=== PATIENT | male | born 1960 | race Caucasian/White ===

== ENCOUNTER 2023-07-11 05:09 | Inpatient (IN) | payer OTHER, MEDICAID ==
[~2023-07-11] VITALS: Ht 188 cm; Wt 96.6 kg
[2023-07-11 06:32] LABS: BASOPHILS % (AUTO) 0.6 % (0.0-2.0); EOSINOPHILS % (AUTO) 2.8 % (1.0-6.0); HEMATOCRIT 34.5 % (41-53); HEMOGLOBIN 11.6 g/dL (13.5-17.5); LYMPHOCYTES # (AUTO) 1.5 K/uL (1.0-4.8); MEAN CORPUSCULAR HEMOGLOBIN 33.9 pg (26.0-34.0); MEAN CORPUSCULAR HGB CONC 33.6 G/dL (31.0-37.0); MEAN CORPUSCULAR VOLUME 101 fL (80-100); MONOCYTES # (AUTO) 0.7 K/uL (0.1-1.0); MONOCYTES % (AUTO) 10.8 % (2.0-9.0); NEUTROPHILS # (AUTO) 3.7 K/uL (1.8-7.7); NEUTROPHILS % (AUTO) 60.8 % (40.0-70.0); PLATELET COUNT (AUTO) 189 K/uL (150-450); RED BLOOD CELL COUNT(AUTO) 3.42 MIL/uL (4.50-5.90); RED CELL DISTRIBUTION WIDTH 15.5 % (11.5-14.5); WHITE BLOOD COUNT (AUTO) 6.1 K/uL (4.5-11.0)
[2023-07-11 06:45] LABS: ANION GAP 5 mmol/L (8-16); CALCIUM, TOTAL 8.8 mg/dL (8.8-10.5); CARBON DIOXIDE 28 mmol/L (22-29); CHLORIDE 106 mmol/L (98-107); CREATININE 1.03 mg/dL (0.60-1.30); GLOMERULAR FILTR. RATE CALC > 60 mL/min (>60); GLUCOSE,RANDOM 101 mg/dL (70-110); POTASSIUM 4.4 mmol/L (3.5-5.1); SODIUM SERUM 139 mmol/L (136-145); UREA NITROGEN, BLOOD 18 mg/dL (7-18)
[2023-07-11 06:51] LABS: ALANINE AMINOTRANSFERASE 16 U/L (12-78); ALBUMIN 3.3 g/dL (3.4-5.0); ALKALINE PHOSPHATASE 92 U/L (46-116); ASPARTATE AMINOTRANSFERASE 24 U/L (15-37); BILIRUBIN,TOTAL 0.2 mg/dL (0.1-1.0); TOTAL PROTEIN, SERUM 6.5 g/dL (6.4-8.2)
[2023-07-11 06:55] LABS: COVID AG,FIA SOURCE NASAL SWAB
[2023-07-11 07:07] LABS: ALCOHOL, BLOOD (SERUM) < 3 mg/dL (0-10)
[2023-07-11 07:13] LABS: RBC MORPHOLOGY COMMENT ABNORMAL RBC MORPH
[2023-07-11 07:17] LABS: SARS-COV2 (COVID) ANTIGEN,FIA Negative (Negative)
[2023-07-11 10:41] LABS: PH,URINE DRUG SCREEN 5.5 (5.0-8.0)
[2023-07-11 10:48] LABS: ALCOHOL, URINE DRUG SCREEN NEGATIVE (NEGATIVE); AMPHET/METH SCREEN,URINE NEGATIVE (NEGATIVE); BARBITURATE SCREEN, URINE NEGATIVE (NEGATIVE); BENZODIAZEPINES SCREEN,URINE POSITIVE (NEGATIVE); CANNABINOID SCREEN,URINE NEGATIVE (NEGATIVE); COCAINE SCREEN,URINE NEGATIVE (NEGATIVE); METHADONE SCREEN, URINE NEGATIVE (NEGATIVE); OPIATE SCREEN,URINE NEGATIVE (NEGATIVE); PHENCYCLIDINE SCREEN,URINE NEGATIVE (NEGATIVE)
[2023-07-11] MEDS ORDERED: ZOLPIDEM TARTRATE 10 MG TABLET PO PRN (11:45)
[2023-07-11] MEDS ORDERED: HALOPERIDOL 5 MG TABLET PO PRN (11:45)
[2023-07-11 15:30] VITALS: BP 144/92; PULSE 57; RESP 20; TEMP 97.8; O2SAT 97
[2023-07-11] MEDS ORDERED: PNEUMOCOCCAL VACCINE POLYVALENT 0.5 ML SYRINGE [PPSV23] IM. ONE (15:45)
[2023-07-11] MEDS: TAMSULOSIN HCL 0.4 MG CAPSULE PO SCH (17:28)
[2023-07-11] MEDS: APIXABAN 5 MG TABLET PO SCH (17:28)
[2023-07-11] MEDS: ATENOLOL 50 MG TABLET PO SCH (17:28)
[2023-07-11] MEDS: LORazepam 2 MG TABLET PO PRN (17:34)
[2023-07-11 21:02] VITALS: RESP 18
[2023-07-12] VITALS (8 sets, daily range): BP systolic 90–122; BP diastolic 60–78; PULSE 54–66; RESP 18–19; TEMP 97.7–99.1; O2SAT 96–98
[2023-07-12] MEDS: LORazepam 2 MG TABLET PO PRN (07:46)
[2023-07-12] MEDS: APIXABAN 5 MG TABLET PO SCH ×2 (08:12→16:06)
[2023-07-12] MEDS: ATENOLOL 50 MG TABLET PO SCH ×2 (08:12→16:05)
[2023-07-12] MEDS: TAMSULOSIN HCL 0.4 MG CAPSULE PO SCH ×2 (08:12→16:05)
[2023-07-12] MEDS ORDERED: BUSP15 PO (10:56)
[2023-07-12] MEDS ORDERED: QUET50TA24 PO (10:56)
[2023-07-12] MEDS ORDERED: MIRT-92 PO (10:56)
[2023-07-12] MEDS ORDERED: DULO20CA71 PO (10:56)
[2023-07-12] MEDS ORDERED: HydrOXYzine PAMOATE 50 MG CAPSULE PO PRN (11:00)
[2023-07-12] MEDS ORDERED: LOPERAMIDE HCL 2 MG CAPSULE PO PRN (11:00)
[2023-07-12] MEDS ORDERED: GuaiFENesin/D-METHORPHAN [SUGAR-FREE] 200-20MG/10 ML SYRUP UDCUP PO PRN (11:00)
[2023-07-12] MEDS ORDERED: CYANOCOBALAMIN 1,000 MCG/ML VIAL IM ONE (11:00)
[2023-07-12] MEDS: QUEtiapine FUMARATE 25 MG TABLET PO SCH ×2 (12:15→16:05)
[2023-07-12] MEDS: BusPIRone HCL 15 MG TABLET PO SCH ×2 (12:15→16:06)
[2023-07-12] MEDS: MULTIVITAMINS WITH MINERALS, THERAPEUTIC TABLET PO SCH (12:15)
[2023-07-12] MEDS: FOLIC ACID 1 MG TABLET PO SCH (12:15)
[2023-07-12] MEDS: THIAMINE 100 MG TABLET PO SCH ×2 (12:15→16:05)
[2023-07-12] MEDS: DULoxetine HCL 20 MG CAPSULE PO SCH ×2 (12:15→16:05)
[2023-07-12] MEDS: DIAZEPAM 10 MG TABLET PO PRN ×3 (12:35→17:33)
[2023-07-12] MEDS ORDERED: QUEtiapine FUMARATE 200 MG TABLET PO SCH (21:00)
[2023-07-12] MEDS ORDERED: MIRTAZAPINE 15 MG TABLET PO SCH (21:00)
[2023-07-13 02:26] VITALS: BP 101/64; PULSE 64; RESP 18; TEMP 97.6; O2SAT 97
[2023-07-13 06:26] VITALS: BP 110/65; PULSE 66; RESP 18; TEMP 97.6; O2SAT 98
[2023-07-13] MEDS ORDERED: DIAZEPAM 10 MG TABLET PO PRN (07:00)
[2023-07-13 08:55] VITALS: BP 110/69; PULSE 50; RESP 19; TEMP 97.8; O2SAT 97
[2023-07-13] MEDS: DULoxetine HCL 20 MG CAPSULE PO SCH (08:58)
[2023-07-13] MEDS: THIAMINE 100 MG TABLET PO SCH (08:58)
[2023-07-13] MEDS: APIXABAN 5 MG TABLET PO SCH (08:58)
[2023-07-13] MEDS: BusPIRone HCL 15 MG TABLET PO SCH (08:58)
[2023-07-13] MEDS: TAMSULOSIN HCL 0.4 MG CAPSULE PO SCH (08:59)
[2023-07-13] MEDS: FOLIC ACID 1 MG TABLET PO SCH (08:59)
[2023-07-13] MEDS: DIAZEPAM 10 MG TABLET PO SCH ×2 (09:00→12:39)
[2023-07-13] MEDS: ATENOLOL 50 MG TABLET PO SCH (09:00)
[2023-07-13] MEDS: QUEtiapine FUMARATE 25 MG TABLET PO SCH (09:05)
[2023-07-13] MEDS: MULTIVITAMINS WITH MINERALS, THERAPEUTIC TABLET PO SCH (09:06)
[2023-07-13 10:58] VITALS: BP 124/74; PULSE 55; RESP 16; TEMP 97.6; O2SAT 98
[2023-07-13 12:12] VITALS: BP 116/54; PULSE 54; RESP 18; TEMP 97.6; O2SAT 98
[2023-07-13] MEDS ORDERED: QUET200T PO (14:50)
[2023-07-13] MEDS ORDERED: QUET25TA PO (14:50)
[2023-07-13] MEDS ORDERED: ATEN-73 PO (14:53)
[2023-07-13] MEDS ORDERED: APIX5TAB PO (14:53)
[2023-07-13] MEDS ORDERED: TAMS0.4C94 PO (14:54)
[2023-07-13] MEDS ORDERED: FOLI-130 PO (14:54)
[2023-07-13] MEDS ORDERED: MULT-1239 PO (14:54)
[2023-07-13] MEDS ORDERED: THIA100T80 PO (14:54)
[2023-07-13] MEDS ORDERED: ATENOLOL 50 MG TABLET PO SCH (17:00)
[2023-07-15] MEDS ORDERED: DIAZEPAM 5 MG TABLET PO PRN (07:00)
[2023-07-15] MEDS ORDERED: DIAZEPAM 5 MG TABLET PO SCH (09:00)
[2023-07-16] MEDS ORDERED: DIAZEPAM 5 MG TABLET PO PRN (07:00)
== END 2023-07-13 15:50 | DRG 885 ==
LOC: EMS 05:12 → 3EX 12:00
PROVIDERS: ADMIT Psychiatry & Neurology Psychiatry; ATTEND Psychiatry & Neurology Psychiatry
DX: F33.2 Major depressive disorder, recurrent severe without psychotic features (principal); F10.139 Alcohol abuse with withdrawal, unspecified; R45.851 Suicidal ideations; Z59.00 Homelessness unspecified; F17.210 Nicotine dependence, cigarettes, uncomplicated; I10 Essential (primary) hypertension; I48.0 Paroxysmal atrial fibrillation; N28.9 Disorder of kidney and ureter, unspecified; Z20.822 Contact with and (suspected) exposure to COVID-19; F41.9 Anxiety disorder, unspecified; Y90.9 Presence of alcohol in blood, level not specified; G47.00 Insomnia, unspecified; Z79.899 Other long term (current) drug therapy
CPT/HCPCS: 80053; 80307; 85025; 99285; G0378; G0480; J3420